=== PATIENT | female | born 1970 | race Two or more races ===

== ENCOUNTER 2017-12-26 21:16 | Emergency (ER) | payer SELFPAY ==
[2017-12-26] MEDS ORDERED: ONDANSETRON 4 MG/2 ML VIAL IVP ONE (21:45)
[2017-12-26] MEDS ORDERED: NS 1,000 ML IV ONE (21:45)
[2017-12-26 22:03] LABS: PLATELET COUNT 242 10^3/uL (150-400)
--- NOTE | 2017-12-26 22:45 | EDPHY ---
H & P Stated Complaint: abdominal pain,constipation, nausea,bloating for 5 days Time Seen by Provider: 12/26/17 21:27 HPI/ROS: 47-year-old female presents complaining of abdominal bloating and back pain for approximately 7 days she also complains of having had no good bowel movement for almost 3 weeks. No diarrhea, no fever no chills no vomiting. She has been trying to taken [id number] colon cleanse, without relief. No prior abdominal surgeries. Review of systems As per HPI General no fever no chills no weakness HEENT no eye pain no eye discharge. No eye redness, no sore throat Respiratory no cough, no shortness of breath Cardiac no chest pain, no peripheral edema GI positive abdominal pain, no diarrhea, positive constipation, no nausea, no vomiting no flank pain, no hematuria, no dysuria Musculoskeletal no myalgias, no joint pain Heme no easy bruising, no easy bleeding Endo no polyuria, no polydipsia Skin no rashes, no pruritus Neuro no syncope, no dizziness, no headaches Psych is no suicidal ideation, no homicidal ideation Source: Patient, Family Exam Limitations: No limitations - Personal History LMP (Females 10-55): Over 28 Days Ago Current Tetanus Diphtheria and Acellular Pertussis (TDAP): Yes Tetanus Vaccine Date: UNSURE - Medical/Surgical History Hx Asthma: No Hx Chronic Respiratory Disease: No Hx Diabetes: No Hx Cardiac Disease: No Hx Renal Disease: No Hx Cirrhosis: No Hx Alcoholism: No Hx HIV/AIDS: No Hx Splenectomy or Spleen Trauma: No Other PMH: DENIES - Family History Significant Family History: No pertinent family hx - Social History Smoking Status: Never smoked Alcohol Use: None Drug Use: None - Physical Exam Exam: 47-year-old female alert and oriented HEENT atraumatic normocephalic, extraocular muscles intact, anicteric Oropharynx negative for erythema negative exudate, tolerating her own secretions Neck supple no meningismus Lungs clear to auscultation bilaterally Heart regular rate and rhythm without murmur rub or gallop Abdomen nondistended normoactive bowel sounds soft , mild diffuse tenderness no guarding no rebound Back no CVA tenderness, no step-offs, no spinal tenderness Extremities no cyanosis clubbing or edema Constitutional: Initial Vital Signs Temperature (C) 36.5 C 12/26/17 21:35 Heart Rate 58 L 12/26/17 21:35 Respiratory Rate 16 12/26/17 21:35 Blood Pressure 140/87 H 12/26/17 21:35 O2 Sat (%) 97 12/26/17 21:35 O2 Delivery Mode Room Air Allergies/Adverse Reactions: No Known Allergies Allergy (Unverified 12/26/17 21:35) Home Medications: Medication Instructions Recorded NK [No Known Home Meds] 12/26/17 Medical Decision Making ED Course/Re-evaluation: Patient seen and evaluated for abdominal bloating and no bowel movement for 3 weeks. IV established, 1 L normal saline given Labs sent CBC within normal limits CMP within normal limits Lipase normal Plain films No distended bowel, no air-fluid levels however a very large stool burden consistent with constipation Impression Constipation Plan Mag citrate Advise daily stool softener High fiber diet Follow-up PCP/[facility] Differential Diagnosis: Differential diagnosis considered but not limited to: Appendicitis, cholecystitis, pancreatitis, gastroenteritis, gastritis, constipation - Data Points Laboratory Results: Laboratory Results 12/26/17 21:50 12/26/17 21:50 Medications Given: Discontinued Medications Sodium Chloride (Ns) 1,000 mls @ 0 mls/hr IV ONCE ONE PRN Reason: Wide Open Stop: 12/26/17 21:46 Last Admin: 12/26/17 22:08 Dose: 1,000 mls Magnesium Citrate (Magnesium Citrate) 300 ml PO ONCE ONE Stop: 12/26/17 23:12 Last Admin: 12/26/17 23:43 Dose: 1 btl Ondansetron HCl (Zofran) 4 mg IVP EDNOW ONE Stop: 12/26/17 21:46 Last Admin: 12/26/17 22:03 Dose: 4 mg Departure - Departure Disposition: Home, Routine, Self-Care Clinical Impression: Constipation Condition: Good Instructions: Constipation (ED), High Fiber Diet (ED) Additional Instructions: Stool softner daily. Referrals: Patient,NotPresent [Unknown] - As per Instructions
[2017-12-26] MEDS ORDERED: MAGNESIUM CITRATE 300 ML BOTTLE PO ONE (23:11)
[2017-12-26 23:40] VITALS: BP 136/78
== END 2017-12-26 23:35 | disposition home or self-care (01) ==
LOC: CED 21:16
DX: K59.00 Constipation, unspecified (principal)
CPT/HCPCS: 74022-PO; 80053-PO; 81003-PO; 83690-PO; 84703-PO; 85025-PO; 96374; J2405